=== PATIENT | male | born 1950 ===

== ENCOUNTER 2017-11-11 07:13 | Day surgery (SDC) | payer MEDICARE ==
[2017-11-05 08:58] VITALS: BMI 29.2
[2017-11-11] MEDS ORDERED: Phenylephrine 10 mg/ml Inj ONE (07:29)
[2017-11-11] MEDS ORDERED: Etomidate 20 mg/10ml Inj IV ONE (07:52)
[2017-11-11] MEDS ORDERED: ePHEDrine 50 mg/ml Inj ONE (07:52)
[2017-11-11] MEDS ORDERED: Lactated Ringer's 1,000 ML IV ONE (08:00)
[2017-11-11] MEDS ORDERED: cefTRIAXone (Rocephin) 1 gm Inj ONE (08:09)
[2017-11-11] MEDS ORDERED: Succinylcholine 200 mg/10 ml Inj IV ONE (08:39)
[2017-11-11] MEDS ORDERED: Midazolam 2 MG/2 ML VIAL ONE (08:39)
[2017-11-11] MEDS ORDERED: Propofol 10 mg/ml Inj (20 ML) ONE ×2 (08:39→09:19)
[2017-11-11] MEDS ORDERED: Lactated Ringer's 1,000 ML IV SCH (10:00)
[2017-11-11 10:01] VITALS: O2SAT 97
[2017-11-11] MEDS: HYDROmorphone 0.5 mg/0.5 ml ISec IVP PRN ×3 (10:16→10:30)
--- NOTE | 2017-11-11 13:06 | OP ---
PROCEDURE DATE: 11/11/2017 PREOPERATIVE DIAGNOSIS: Bladder calculus. POSTOPERATIVE DIAGNOSIS: Bladder calculus. PROCEDURE PERFORMED: Cystoscopy with lithotripsy of a bladder stone. DESCRIPTION OF PROCEDURE: The patient was placed on the operating table in a dorsal lithotomy position, given IV sedation at this time with a #21 cystoscope, I entered into the bladder atraumatically. He has a rather large middle lobe and with a 3-degree lens could not visualize the stone. I then exchanged it for a 70-degree lens, was able to visualize the stone immediately behind the middle lobe of the prostate. I am going to ask to make the size to be above 1.5 cm incised. Using a holmium laser, I broke the stone into many pieces. Fragments were aspirated, the fragments were probably just come out on their own. Once this was done, there was some bleeding in the area of the middle of the prostate. I used the Bugbee to cauterize that and then instrumentation was removed because of the manipulation and decided to put in a #18 two-way Obrien catheter. The patient then was taken from the operating room in good condition. Blood loss was none. Alejandro Johnson MD
[2017-11-11 13:43] VITALS: BP 107/24; PULSE 80; RESP 18; TEMP 97.8
== END 2017-11-11 12:20 | disposition home or self-care (01) ==
LOC: H.OPSURG 07:13
PROVIDERS: ATTEND Urology
DX: N21.0 Calculus in bladder (principal); E78.5 Hyperlipidemia, unspecified; I10 Essential (primary) hypertension; N40.0 Benign prostatic hyperplasia without lower urinary tract symptoms; R73.03 Prediabetes
CPT/HCPCS: 52317; 82355; J0696; J1170; J2001; J2250; J2370; J2704; J2765; J3010; J7120